=== PATIENT | male | born 1955 | race Caucasian/White ===

== ENCOUNTER 2016-09-05 13:52 | Emergency (ER) | payer OTHER ==
[~2016-09-05 13:52] MED LIST: ACET325T96 PO; CLON0.5T3 PO; VALP250S2 PO
[2016-09-05 14:18] VITALS: TEMP 36.5
--- NOTE | 2016-09-05 14:27 | EMERGENCY ROOM VISIT NOTE ---
History Report prepared by Dhiraj: Mable Daley Under the Supervision of: Dr. Oscar Huang M.D. First contact with patient: 14:15 Stated Complaint: FALL/LAC ABOVE RT EYE/ FR [facility] History of Present Illness The patient is a 60 year old male who presents to the Emergency Room with complaints of a sudden fall that occurred just prior to arrival. Per nursing staff, the patient arrives at the emergency department from the [facility] Dementia unit. Nursing staff reports that the patient has a history of Alzheimer's. Nursing staff states that the patient fell while in the shower and hit his head. Nursing staff is unsure if the patient lost consciousness. The patient denies any pain. Per nursing staff the patient has a 12 mcg Fentanyl patch on his arm. The history is limited secondary to dementia. Source of History: patient, nursing staff History Limited By: dementia Onset: prior to arrival Position: other (global) Quality: other (fall) Timing: other (sudden) Review of Systems History is limited secondary to patient's dementia. Past Medical & Surgical Medical Problems: (1) Altered mental status (2) Change in mental status (3) Dementia Family History Patient reports no known family medical history. Social History Smoking Status: Former Smoker Drug Use: none Marital Status: Housing Status: assisted living Occupation Status: unemployed Current/Historical Medications Scheduled Diclofenac Sodium (Topical) (Voltaren 1% Top Gel), 4 GM TOP QID Diphenhydramine Hcl (Sleep) (Diphenhydramine Hcl), 50 MG PO Q8 Fentanyl (Fentanyl), 12 MCG TOP CQ72HR Haloperidol (Haloperidol), 1 MG PO TID Lorazepam (Ativan), 0.5 MG PO Q6H Polyethylene Glycol 3350 (Miralax), 17 GM PO DAILY Risperidone (Risperdal Consta), 25 MG IM [id number] Sennosides-Docusate Sodium (Senna S), 2 TABS PO BID [Nutritional FrozenDk], 1 EA PO BID Scheduled PRN Acetaminophen Tab (Tylenol), 650 MG PO Q4H PRN for Elevated Temperature Bisacodyl (Dulcolax), 1 SUPP ND UD PRN for Constipation Lorazepam (Ativan), 0.5 ML IM Q4H PRN for Severe Agitation/Restlessness Magnesium Hydroxide (Milk Of Magnesia), 30 ML PO UD PRN for Constipation Morphine Sulfate (Morphine Sulfate), 0.125 ML PO Q4H PRN for Mild Pain Morphine Sulfate (Morphine Sulfate), 0.5 ML PO Q4H PRN for Severe Pain Morphine Sulfate (Morphine Sulfate), 0.25 ML PO Q4H PRN for Moderate Pain Sodium Phosphate/Biphosphate (Fleet Enema), 1 EA ND UD PRN for Constipation Miscellaneous Medications Morphine Sulfate (Morphine Sulfate) Allergies Coded Allergies: No Known Allergies (Unverified , 12/21/15) Physical Exam Vital Signs Date Time Temp Pulse Resp B/P Pulse Ox O2 Delivery O2 Flow Rate FiO2 09/05/16 18:15 70 15 91/58 100 09/05/16 18:09 70 15 91/58 100 Room Air 09/05/16 17:26 81 16 111/75 98 Room Air 09/05/16 15:42 85 20 90/60 97 Room Air 09/05/16 14:18 36.5 68 13 91/57 100 Room Air 09/05/16 14:14 68 Physical Exam GENERAL: Patient is awake, and has minimal verbal response. He is disoriented, stares off into space. SKIN: No erythema, pallor, cyanosis or rash HEENT: 5.5 cm laceration above right eyebrow, no lieberman sign, or raccoon sign. Pupils equal, reactive to light and accommodation. Ears normal, no hemotympanum. Oral cavity and posterior pharynx appear normal. Neck: Supple, nontender. Without adenopathy, no neck vein distention. LUNGS: Clear to auscultation. No wheezes, no rales, no rhonchi. HEART: No murmurs. No gallops. No rubs ABDOMEN: No masses, no rebound, no hepatomegaly or splenomegaly. BACK: No sign of injury. EXTREMITIES: No signs of injury, or infection. NEUROLOGIC: Cranial nerves II-XII within normal limits. No gross motor sensory function deficits. Medical Decision & Procedures ER Provider Diagnostic Interpretation: CT of the head and neck were performed. No acute abnormalities were found. Please see full report from radiology. Laboratory Results 09/05/16 14:40 09/05/16 14:40 Test 09/05/16 14:40 Red Blood Count 4.02 M/uL (4.7-6.1) Mean Corpuscular Volume 93.5 fL (80-100) Mean Corpuscular Hemoglobin 33.1 pg (25-34) Mean Corpuscular Hemoglobin Concent 35.4 g/dl (32-36) RDW Standard Deviation 44.4 fL (36.4-46.3) RDW Coefficient of Variation 13.0 % (11.5-14.5) Mean Platelet Volume 9.3 fL (7.4-10.4) Prothrombin Time 10.4 SECONDS (9.0-12.0) Prothromb Time International Ratio 1.0 (0.9-1.1) Activated Partial Thromboplast Time 26.8 SECONDS (21.0-31.0) Partial Thromboplastin Ratio 1.0 Anion Gap 5.0 mmol/L (3-11) Estimated GFR () 85.3 Estimated GFR (Non- 73.6 BUN/Creatinine Ratio 17.2 (10-20) Calcium Level 9.0 mg/dl (8.5-10.1) Laboratory results as stated above per my review Medications Administered Medications (Trade) Dose Ordered Sig/Asher Route Start Time Stop Time Status Last Admin Dose Admin Haloperidol (Haldol Tab) 1 mg ONE ONCE PO 09/05/16 15:45 09/05/16 15:46 DC 09/05/16 16:23 1 MG ECG Indication: altered mental status, other (trauma) Rate (beats per minute): 68 Rhythm: normal sinus Findings: no acute ischemic change, no ectopy, other (left axis deviation) ED Course 1415: Past medical records reviewed. The patient was evaluated in room B6. A complete history and physical examination was performed. 1430: Ordered Lidocaine 20 ml INFIL. 1435: The laceration repair was performed by Nichole Resendiz PA-C. See her note for further detail. 1545: Ordered Haldol Tab 1 mg PO. Medical Decision Nurses notes reviewed. Medical history sheet reviewed. Differential diagnosis includes but is not limited to: fall, intracranial injury, neck injury, laceration, history of dementia. The patient apparently had a mechanical fall striking his head resulting in a 5- 1/2 cm laceration to his forehead. A workup ensued to look for causes for a fall. He also had CAT scans of his head and neck to make sure that he does not have a subdural bleed or cervical spine injury. The injury was repaired by Nichole resendiz PA-C. Please see her note. The patient was self felt safe to return back to the Alzheimer's unit Impression Primary Impression: Facial laceration Additional Impression: Fall Scribe Attestation The scribe's documentation has been prepared under my direction and personally reviewed by me in its entirety. I confirm that the note above accurately reflects all work, treatment, procedures, and medical decision making performed by me. Departure Information Dispostion Home / Self-Care Referrals Alberto Otoole (PCP) Patient Instructions ED Wound Care, [facility] Additional Instructions Continue all of your current medications as prescribed. Clean the laceration with dilute peroxide and cover with Bacitracin ointment once a day. Sutures should be removed here in 5-7 days. Problem Qualifiers
[2016-09-05] MEDS ORDERED: XYLOCAINE 1%/SOD BICARB 20 ML VIAL INFIL ONE (14:30)
[2016-09-05 14:54] LABS: HEMATOCRIT 37.6 % (42-52); MEAN CELL VOLUME 93.5 fL (80-100); MEAN CORPUSCULAR HEMOGLOBIN 33.1 pg (25-34); MEAN CORPUSCULAR HGB CONC 35.4 g/dl (32-36); MEAN PLATELET VOLUME 9.3 fL (7.4-10.4); PLATELET COUNT 190 K/uL (130-400); RED BLOOD COUNT 4.02 M/uL (4.7-6.1); WHITE BLOOD COUNT 6.81 K/uL (4.8-10.8)
[2016-09-05 15:04] LABS: PROTHROMBIN TIME (PATIENT) 10.4 SECONDS (9.0-12.0)
[2016-09-05 15:12] LABS: BLOOD UREA NITROGEN 19 mg/dl (7-18); BUN/CREATININE RATIO 17.2 (10-20); CARBON DIOXIDE 33 mmol/L (21-32); CHLORIDE 104 mmol/L (98-107); GLUCOSE 93 mg/dl (70-99); POTASSIUM 4.1 mmol/L (3.5-5.1); SODIUM 142 mmol/L (136-145)
[2016-09-05] MEDS ORDERED: POLY335019 PO (15:24)
[2016-09-05] MEDS ORDERED: RSPI25 IM (15:24)
--- NOTE | 2016-09-05 15:24 | EMERGENCY ROOM VISIT NOTE ---
ED Visit Note I was requested by Dr. Huang to repair a 5 cm laceration above the right eyebrow. PROCEDURE: Wound Repair: Complexity: Basic. Verbal consent was obtained after the risks and benefits were explained, including but not limited to bleeding, scarring, infection, pain, and bone/joint /nerve damage. The skin was prepped with betadine and a sterile field set. The wound was anesthetized with 4.8 ml of 1% buffered lidocaine. With direct pressure the bleeding subsided. Copious irrigation was performed using sterile saline. The wound was explored for foreign bodies and none found. Debridement was not performed. The deep tissue was approximated with 3 interrupted 6-0 Vicryl sutures The wound edges were then approximated using 6-0 Ethilon with 11 simple interrupted sutures. Hemostasis and excellent approximation was achieved. Antibacterial ointment and a sterile dressing applied. Detailed wound care instructions and signs and symptoms of infection reviewed with the patient. No complications and the patient tolerated the procedure well.
[2016-09-05] MEDS ORDERED: DIPH50TA10 PO (15:30)
[2016-09-05] MEDS ORDERED: [UNRECOGNIZED DRUG - OTHER] PO (15:30)
[2016-09-05] MEDS ORDERED: SENN-91 PO (15:30)
[2016-09-05] MEDS ORDERED: HALO1TAB PO (15:33)
[2016-09-05] MEDS ORDERED: ACET325T96 PO (15:36)
[2016-09-05] MEDS ORDERED: DICL1GEL12 TOP (15:36)
[2016-09-05] MEDS ORDERED: LORA-741 PO (15:37)
[2016-09-05] MEDS ORDERED: LORA2INJ19 IM (15:37)
[2016-09-05] MEDS ORDERED: BISA10SU3 PR (15:42)
[2016-09-05] MEDS ORDERED: DRGTP12 TOP (15:42)
[2016-09-05] MEDS ORDERED: SODIENE PR (15:44)
[2016-09-05] MEDS ORDERED: HALOPERIDOL 1 MG TAB PO ONE (15:45)
[2016-09-05] MEDS ORDERED: MRPL PO (15:52)
[2016-09-05] MEDS ORDERED: MOML PO (15:52)
[2016-09-05] MEDS ORDERED: RXNS20 PO (15:52)
[2016-09-05] MEDS ORDERED: MORP20SO (15:52)
--- NOTE | 2016-09-05 17:06 | DIAGNOSTIC IMAGING REPORT ---
CT SCAN OF THE BRAIN WITHOUT IV CONTRAST CLINICAL HISTORY: Fall. Head injury. COMPARISON STUDY: CT of the brain dated 02/05/2016. TECHNIQUE: Unenhanced axial CT scan of the brain is performed from the vertex to the skull base. The patient was scanned twice due to motion artifact. CT DOSE: 1663.45 mGy.cm FINDINGS: Brain parenchyma: There are age-advanced involutional changes noting mild/moderate patchy subcortical and periventricular microangiopathic change. 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 There is no hemorrhage, mass effect, or evidence of acute territorial ischemia by CT criteria. Stone-white matter is preserved. No extra-axial fluid collection is seen. Ventricles, sulci, cisterns: Prominent secondary to involutional change. Intracranial vasculature: There is mild atherosclerotic calcification of the cavernous carotid arteries. Calvarium: The skeletal structures are osteopenic. There is no depressed calvarial fracture. Sinuses and mastoids: The visualized paranasal sinuses are clear. The mastoid air cells are well pneumatized. Orbits: The bony orbits are grossly intact. IMPRESSION: Age-advanced senescent changes as above. There is no hemorrhage, mass effect, or evidence of acute territorial ischemia by CT criteria noting a motion degraded examination. Electronically signed by: Harshal Peres M.D. 09/05/2016 5:05 PM Dictated Date/Time: 09/05/2016 5:02 PM
--- NOTE | 2016-09-05 17:12 | DIAGNOSTIC IMAGING REPORT ---
CT SCAN OF THE CERVICAL SPINE CLINICAL HISTORY: Fall. COMPARISON STUDY: No priors. TECHNIQUE: CT scan of the cervical spine is performed from the skull base to the upper thoracic spine. Images are reviewed in the axial, sagittal, and coronal planes. IV contrast was not administered for this examination. CT DOSE: Reported separately under the concurrently performed CT scan of the brain. FINDINGS: Skeletal structures: The skeletal structures are osteopenic. There is no evidence of fracture or subluxation involving the cervical spine. Vertebral body height and alignment are maintained. The odontoid process and lateral masses are intact. The atlantoaxial articulation is preserved noting mild productive degenerative change. The spinous processes appear intact. Small anterior osteophytes are seen throughout. Mild multilevel facet arthropathy is noted. Intervertebral discs: Moderate degenerative disc space narrowing seen from C4 to C5 through C6-C7. Central canal: Small posterior disc osteophyte complexes at C4-C5, C5-C6, and C6-C7 may contribute to minimal acquired compromise of the central canal. Soft tissues: The prevertebral and paraspinous soft tissues are within normal limits. Calvarium: The visualized calvarium at the skull base appears intact. Brain parenchyma: Partially visualized brain parenchyma the skull base is within normal limits noting age-advanced involutional change. Sinuses and mastoids: The visualized paranasal sinuses are clear. The mastoid air cells are well pneumatized. Lung apices: Advanced emphysema is present at the lung apices. A calcified granulomas noted in the left upper lobe. IMPRESSION: 1. There is no evidence of fracture or subluxation involving the cervical spine. 2. Osteopenia and spondylotic change as above. 3. Advanced emphysema. Electronically signed by: Harshal Peres M.D. 09/05/2016 5:10 PM Dictated Date/Time: 09/05/2016 5:01 PM
[2016-09-05 18:15] VITALS: BP 91/58; PULSE 70; O2SAT 100
== END 2016-09-05 18:15 | disposition home or self-care (01) ==
LOC: EDBD 13:52 → C.EDB 13:53
DX: S01.81XA Laceration without foreign body of other part of head, initial encounter (principal); W18.2XXA Fall in (into) shower or empty bathtub, initial encounter; F03.90 Unspecified dementia, unspecified severity, without behavioral disturbance, psychotic disturbance, mood disturbance, and anxiety; Z87.891 Personal history of nicotine dependence

== ENCOUNTER 2016-11-22 13:26 | Emergency (ER) | payer OTHER ==
[~2016-11-22] VITALS: Ht 175.3 cm; Wt 66.2 kg
[~2016-11-22 13:26] MED LIST changes: +BISA10SU3 PR; -CLON0.5T3 PO; +DICL1GEL12 TOP; +DIPH50TA10 PO; +DRGTP12 TOP; +HALO1TAB PO; +LORA-741 PO; +LORA2INJ19 IM; +MOML PO; +MORP20SO; +MRPL PO; +POLY335019 PO; +RSPI25 IM; +RXNS20 PO; +SENN-91 PO; +SODIENE PR; -VALP250S2 PO; +[UNRECOGNIZED DRUG - OTHER] PO
[2016-11-22 13:45] VITALS: TEMP 36.4; Ht 175.3 cm; Wt 66.2 kg
[2016-11-22 14:28] VITALS: BP 113/80; PULSE 84; O2SAT 99
--- NOTE | 2016-11-22 19:16 | EMERGENCY ROOM VISIT NOTE ---
History Report prepared by Dhiraj: Soren Taylor Under the Supervision of: Dr. David Ogden M.D. First contact with patient: 13:53 Chief Complaint: ALTERED MENTAL STATUS Stated Complaint: OTHER COMPLAINT Nursing Triage Summary: Arrives ALS from [facility] for evalution of unresponsiveness after receiving wafer and water by mother. She denies coughing, choking. Mother reports pt remained like that for one hour; no one able to arouse pt. Pt did drool, reports new. Family reports pt is now baseline. Insensible language, constant moving down in bed. Pervalery. Adriano. Pt with end stage alzheimers. History of Present Illness The patient is a 61 year old male who presents to the Emergency Room via ambulance from [facility] with complaints of sudden unresponsiveness beginning just prior to arrival. As per mother, the patient has a history of severe Alzheimer's. She states they were visiting the patient two hours ago, and they gave the patient water and a wafer. The mother notes the patient bend forward in his chair and fell asleep. She states the patient began to drool and was not able to get a reaction out of him. The mother notes the episode lasted for an hour. She states the patient was evaluated by two nurses who tried to wake the patient, and noted the eyes were pin point. The sister notes the patient is on a Fentanyl patch for back pain. The father states the patient did not sleep well last night. The family denies the patient experiencing a fever, vomiting, recent falls, and hitting his head. The history is limited secondary to the patient's dementia. Source of History: family History Limited By: dementia Onset: just prior to arrival Position: other (global) Quality: other (unresponsiveness) Timing: other (sudden) Associated Symptoms: No fevers, No vomiting Note: Associated symptoms: resolved pin point eyes. Review of Systems The HPI and ROS are limited secondary to the patient's dementia. Past Medical & Surgical Medical Problems: (1) Altered mental status (2) Change in mental status (3) Dementia Family History Patient reports no known family medical history. Social History Smoking Status: Former Smoker Drug Use: none Marital Status: Housing Status: assisted living Occupation Status: unemployed Current/Historical Medications Scheduled Diclofenac Sodium (Topical) (Voltaren 1% Top Gel), 4 GM TOP QID Diphenhydramine Hcl (Sleep) (Diphenhydramine Hcl), 50 MG PO Q8 Fentanyl (Fentanyl), 12 MCG TOP CQ72HR Haloperidol (Haloperidol), 1 MG PO TID Lorazepam (Ativan), 0.5 MG PO Q6H Polyethylene Glycol 3350 (Miralax), 17 GM PO DAILY Risperidone (Risperdal Consta), 25 MG IM [id number] Sennosides-Docusate Sodium (Senna S), 2 TABS PO BID [Nutritional FrozenDk], 1 EA PO BID Scheduled PRN Acetaminophen Tab (Tylenol), 650 MG PO Q4H PRN for Elevated Temperature Bisacodyl (Dulcolax), 1 SUPP ND UD PRN for Constipation Lorazepam (Ativan), 0.5 ML IM Q4H PRN for Severe Agitation/Restlessness Magnesium Hydroxide (Milk Of Magnesia), 30 ML PO UD PRN for Constipation Morphine Sulfate (Morphine Sulfate), 0.125 ML PO Q4H PRN for Mild Pain Morphine Sulfate (Morphine Sulfate), 0.5 ML PO Q4H PRN for Severe Pain Morphine Sulfate (Morphine Sulfate), 0.25 ML PO Q4H PRN for Moderate Pain Sodium Phosphate/Biphosphate (Fleet Enema), 1 EA ND UD PRN for Constipation Miscellaneous Medications Morphine Sulfate (Morphine Sulfate) Allergies Coded Allergies: No Known Allergies (Unverified , 12/21/15) Physical Exam Vital Signs Date Time Temp Pulse Resp B/P Pulse Ox O2 Delivery O2 Flow Rate FiO2 11/22/16 14:28 84 17 113/80 99 Room Air 11/22/16 13:45 36.4 70 18 105/67 98 Room Air Physical Exam Limited exam due to lack of cooperation. Constitutional: Vital signs reviewed. Eyes: Pupils are equal round reactive to light. Conjunctiva are noninjected. Respiratory: Clear to auscultation bilaterally. Breath sounds are equal bilaterally. Cardiovascular: Regular rate and rhythm. No rubs or gallops. GI: Soft, nondistended and nontender. Bowel sounds are present. Musculoskeletal: No peripheral edema. Integumentary: No cyanosis. Neurological: The patient is awake and alert. Moves all extremities. Slightly agitated but redirectable by family. Psychiatric: Unable to assess. Medical Decision & Procedures ED Course 1356: The patient was evaluated in room C12B. A complete history and physical exam was performed. 1408: I spoke to the nurse at [facility], and she said the patient's heart rate went down to 48-55 bpm with a blood pressure of 84/60. I talked to the patient' s family again about this, and we discussed getting an IV, EKG, and blood work. Family stated that they would prefer to have nothing done at this time. They feel he has suffered enough and if a problem was found that they would not want anything done. They would prefer to have the patient discharged back to [facility] at this time. Medical Decision This is a 61-year-old male who presents with an episode of unresponsiveness. Differential diagnosis includes medication overdose, lack of sleep, metabolic derangement, cardiac, infection, neurologic. I did perform a limited focused review of portions of the patient's old chart on the electronic medical record. The patient was here on September 05 for a fall. He had a negative Head CT and was discharged to [facility] after repair of his laceration. I did evaluate the patient as noted above. I did obtain history from the patient's family due to his severe dementia. I did also obtain additional information from the nurse he stated that his blood pressure was 84/60 and he had a heart rate of 48-55 at the shelter. I did have a long discussion with the family. They stated that they did not want to have any testing done at this time. They feel he is back at his baseline. They understand that I could not rule out any life or limb threatening illness without any further diagnostic testing. His mother stated that he has suffered enough and they did not wish to have anything done at this point. I did comply with the family's wishes and the patient was transferred back to the shelter. Impression Primary Impression: Unresponsive episode Additional Impressions: Bradycardia Hypotension Scribe Attestation The scribe's documentation has been prepared under my direct and personally reviewed by me in its entirety. I confirm that the note above accurately reflects all work, treatment, procedures, and medical decision making performed by me. Departure Information Dispostion Home / Self-Care Referrals Alberto Otoole (PCP) Forms HOME CARE DOCUMENTATION FORM, IMPORTANT VISIT INFORMATION Patient Instructions My [facility] Additional Instructions You have elected to not have any testing done in the emergency department making it impossible to rule out any life or limb threatening illness. Please follow up with his doctor and return should you have any further concerns or wish to pursue any further diagnostic testing and/or treatment. Problem Qualifiers Additional Impressions: Hypotension Hypotension type: unspecified hypotension type Qualified Codes: I95.9 - Hypotension, unspecified
== END 2016-11-22 15:36 | disposition home or self-care (01) ==
LOC: EDBD 13:26 → C.EDC 13:27
DX: R41.82 Altered mental status, unspecified (principal); R00.1 Bradycardia, unspecified; I95.9 Hypotension, unspecified; G30.9 Alzheimer's disease, unspecified; F02.80 Dementia in other diseases classified elsewhere, unspecified severity, without behavioral disturbance, psychotic disturbance, mood disturbance, and anxiety; Z87.891 Personal history of nicotine dependence; Z79.899 Other long term (current) drug therapy

== ENCOUNTER → 2017-10-07 | Outpatient (CLI) | payer OTHER ==
[~2017-10-07] MED LIST changes: +ACET-1693 PO; -ACET325T96 PO
[2017-10-07 08:53] LABS: BASO % 0.8 %; BASO ABS # 0.04 K/uL (0-0.2); EOS % 2.6 %; EOS ABS # 0.14 K/uL (0-0.5); HEMATOCRIT 37.5 % (42-52); IG# 0.01 K/uL (0.00-0.02); LYMPH % 39.5 %; MEAN CELL VOLUME 93.1 fL (80-100); MEAN CORPUSCULAR HEMOGLOBIN 32.3 pg (25-34); MEAN CORPUSCULAR HGB CONC 34.7 g/dl (32-36); MEAN PLATELET VOLUME 9.6 fL (7.4-10.4); MONO % 7.9 %; MONO ABS # 0.42 K/uL (0.11-0.59); NEUT ABS # 2.61 K/uL (1.4-6.5); PLATELET COUNT 178 K/uL (130-400); RED CELL DISTRIBUTION WIDTH CV 12.7 % (11.5-14.5); WHITE BLOOD COUNT 5.32 K/uL (4.8-10.8)
[2017-10-07 09:04] LABS: ALBUMIN 3.4 gm/dl (3.4-5.0); BLOOD UREA NITROGEN 16 mg/dl (7-18); CALCIUM 9.1 mg/dl (8.5-10.1); CARBON DIOXIDE 28 mmol/L (21-32); CREATININE 1.02 mg/dl (0.60-1.40); GLUCOSE 81 mg/dl (70-99); POTASSIUM 4.5 mmol/L (3.5-5.1); SODIUM 138 mmol/L (136-145)
[2017-10-07 09:20] LABS: ALKALINE PHOSPHATASE 98 U/L (45-117); ALT/SGPT 23 U/L (12-78); AST/SGOT 20 U/L (15-37); TOTAL PROTEIN 6.8 gm/dl (6.4-8.2)
== END | disposition home or self-care (01) ==
LOC: C.LABUPHEI 08:24
PROVIDERS: ATTEND Nurse Practitioner Family
DX: R63.4 Abnormal weight loss (principal)